=== PATIENT | male | born 1995 | race Caucasian/White ===

== ENCOUNTER 2017-03-27 12:33 | Emergency (ER) | payer MEDICAID ==
[~2017-03-27] VITALS: Ht 170.2 cm; Wt 60.6 kg
[2017-03-27 12:38] VITALS: BP 116/74
[2017-03-27] MEDS ORDERED: ONDANSETRON ODT 4 MG ONE (13:06)
[2017-03-27] MEDS ORDERED: ONDANSETRON ODT 4 MG PO ONE (13:30)
== END 2017-03-27 13:20 | disposition home or self-care (01) ==
LOC: ED 13:19
DX: R10.84 Generalized abdominal pain (principal); R11.0 Nausea
CPT/HCPCS: 99283; Q0162

== ENCOUNTER 2017-03-29 12:46 | Emergency (ER) | payer MEDICAID ==
[~2017-03-29] VITALS: Ht 167.6 cm; Wt 63.3 kg
[2017-03-29 12:50] VITALS: BP 118/76
[2017-03-29] MEDS ORDERED: KETOROLAC 30 MG/1 ML IM ONE (13:30)
[2017-03-29] MEDS ORDERED: LORazepam 1MG TABLET PO ONE (13:30)
[2017-03-29] MEDS ORDERED: ONDA4TAB10 PO (13:31)
[2017-03-29] MEDS ORDERED: QUET25TA5 PO (13:31)
[2017-03-29] MEDS ORDERED: LAMO200T3 PO (13:31)
[2017-03-29] MEDS ORDERED: KETOROLAC 30 MG/1 ML ONE (13:34)
[2017-03-29] MEDS ORDERED: LORazepam 1MG TABLET ONE (13:34)
== END 2017-03-29 14:52 | disposition home or self-care (01) ==
LOC: ED 13:50
DX: R00.2 Palpitations (principal); F41.9 Anxiety disorder, unspecified; F32.9 Major depressive disorder, single episode, unspecified
CPT/HCPCS: 71020; 82962; 93005; 96372; 99284; J1885